=== PATIENT | male | born 1985 | race Two or more races ===

== ENCOUNTER 2024-03-23 23:23 | Emergency (ER) | payer MEDICAID ==
[~2024-03-23] VITALS: Ht 172.7 cm; Wt 120.0 kg
[2024-03-23 23:27] VITALS: TEMP 98.1
[2024-03-24 00:03] LABS: BASOPHILS % (AUTO) 0.6 % (0.0-2.0); EOSINOPHILS % (AUTO) 4.5 % (1.0-6.0); HEMATOCRIT 44.3 % (41-53); HEMOGLOBIN 15.2 g/dL (13.5-17.5); LYMPHOCYTES # (AUTO) 1.8 K/uL (1.0-4.8); LYMPHOCYTES % (AUTO) 28.9 % (22.0-44.0); MEAN CORPUSCULAR HEMOGLOBIN 30.8 pg (26.0-34.0); MEAN CORPUSCULAR HGB CONC 34.2 G/dL (31.0-37.0); MEAN CORPUSCULAR VOLUME 90 fL (80-100); MONOCYTES # (AUTO) 0.4 K/uL (0.1-1.0); NEUTROPHILS # (AUTO) 3.6 K/uL (1.8-7.7); PLATELET COUNT (AUTO) 230 K/uL (150-450); RED BLOOD CELL COUNT(AUTO) 4.93 MIL/uL (4.50-5.90); RED CELL DISTRIBUTION WIDTH 13.5 % (11.5-14.5); WHITE BLOOD COUNT (AUTO) 6.1 K/uL (4.5-11.0)
[2024-03-24 00:09] LABS: ANION GAP 11 mmol/L (8-16); CALCIUM, TOTAL 8.8 mg/dL (8.8-10.5); CARBON DIOXIDE 25 mmol/L (22-29); CHLORIDE 105 mmol/L (98-107); CREATININE 1.23 mg/dL (0.60-1.30); GLOMERULAR FILTR. RATE CALC > 60 mL/min (>60); GLUCOSE,RANDOM 192 mg/dL (70-110); POTASSIUM 3.6 mmol/L (3.5-5.1); SODIUM SERUM 141 mmol/L (136-145); UREA NITROGEN, BLOOD 14 mg/dL (7-18)
[2024-03-24 00:14] LABS: ALANINE AMINOTRANSFERASE 46 U/L (12-78); ALBUMIN 3.6 g/dL (3.4-5.0); ALKALINE PHOSPHATASE 92 U/L (46-116); ASPARTATE AMINOTRANSFERASE 20 U/L (15-37); BILIRUBIN,TOTAL 0.6 mg/dL (0.1-1.0); TOTAL PROTEIN, SERUM 7.5 g/dL (6.4-8.2)
[2024-03-24 00:19] LABS: TROPONIN I-HIGH SENSITIVITY Less Than 4 ng/L (<76)
[2024-03-24] MEDS: KETOROLAC TROMETHAMINE 30 MG/ML VIAL IM ONE (00:59)
[2024-03-24 01:00] VITALS: BP 131/78; PULSE 74; RESP 18
== END 2024-03-24 01:36 | disposition home or self-care (01) ==
LOC: EMS 23:25
DX: M94.0 Chondrocostal junction syndrome [Tietze] (principal); R07.89 Other chest pain
CPT/HCPCS: 99285; 71046; 80053; 84484; 85025; 93005; 96372; J1885

== ENCOUNTER 2024-09-09 13:44 | Emergency (ER) | payer MEDICAID, OTHER ==
[~2024-09-09] VITALS: Ht 177.8 cm; Wt 113.6 kg
[2024-09-09 14:21] VITALS: TEMP 98.2
[2024-09-09] MEDS ORDERED: TRAM50TA5 PO (17:04)
[2024-09-09] MEDS ORDERED: PENI500T2 PO (17:04)
[2024-09-09 17:14] VITALS: BP 135/73; PULSE 70; RESP 18; O2SAT 99
== END 2024-09-09 17:15 | disposition home or self-care (01) ==
LOC: EMS 13:46
DX: K04.7 Periapical abscess without sinus (principal)
CPT/HCPCS: 99283; Z7502